=== PATIENT | male | born 1975 | race African-American/Black ===

== ENCOUNTER 2018-07-27 09:58 | Emergency (ER) | payer SELFPAY ==
[2018-07-27 10:57] LABS: #Basophils 0.1 thou/uL (0.0-0.2); #Monocytes 0.5 thou/uL (0.11-0.59); #Neutrophils 3.7 thou/uL (1.40-6.50); %Basophils 1.3 % (0.0-1.0); %Eosinophils 0.1 % (0.0-10.0); %Lymphocytes 19.4 % (21.0-51.0); %Monocytes 8.7 % (0.0-10.0); %Neutrophils 70.5 % (42.0-75.0); Hemoglobin 14.1 g/dL (14.0-18.0); Mean Corpuscular Hemoglobin 28.7 pg (27.0-31.0); Mean Corpuscular Volume 89.6 fL (78.0-98.0); Mean Platelet Volume 7.9 fL (7.4-10.4); Platelet Count 204 thou/uL (130-400); RBC Distribution Width 12.2 % (11.5-14.5); Red Blood Cell (RBC) Count 4.92 mill/uL (4.70-6.10); White Blood Cell (WBC) Count 5.2 thou/uL (4.8-10.8)
[2018-07-27 11:16] LABS: ALT (SGPT) 31 U/L (8-55); AST (SGOT) 27 U/L (5-34); Albumin 4.9 g/dL (3.5-5.0); Alkaline Phosphatase 82 U/L (40-150); Anion Gap 13 mmol/L (10-20); BUN (Urea Nitrogen) 17 mg/dL (8.9-20.6); Bilirubin, Total 0.6 mg/dL (0.2-1.2); Calc. Creatinine Clearance 0 mL/min (70-130); Carbon Dioxide 31 mmol/L (22-29); Chloride 98 mmol/L (98-107); Estimated GFR-MDRD 62; Globulin 2.7 g/dL (2.4-3.5); Glucose 108 mg/dL (70-105); Potassium 3.4 mmol/L (3.5-5.1); Protein, Total 7.6 g/dL (6.0-8.3); Sodium 139 mmol/L (136-145)
--- NOTE | 2018-07-27 11:39 | CT ---
CT Brain WO Con: 07/27/2018 10:40 AM CLINICAL HISTORY: Head injury and pain. COMPARISON: None. FINDINGS: Hemorrhage: There is layering hyperdensity along the cerebellar tentorium, greater to the left, indic ative of acute subdural hematoma. There is also a mild component along the interhemispheric falx. Ventricular system: Normal in size and morphology for the patient's age. Cerebral parenchyma: No intrinsic edema Midline shift: None. Mass: No significant mass effect Calvarium: No displaced fracture. Visualized Paranasal sinuses: Clear. IMPRESSION: Acute subdural hematoma. Recommend neurosurgical consultation. Notification of findings at 1134 hours .
[2018-07-27 12:08] LABS: PTT 34.3 SEC (22.9-36.1); Prothrombin Time 12.9 SEC (12.0-14.7)
== END 2018-07-27 12:30 | disposition short-term general hospital (02) ==
LOC: MADERS 09:58
DX: S06.5X5A Traumatic subdural hemorrhage with loss of consciousness greater than 24 hours with return to pre-existing conscious level, initial encounter (principal); N17.9 Acute kidney failure, unspecified; I10 Essential (primary) hypertension; V80.010A Animal-rider injured by fall from or being thrown from horse in noncollision accident, initial encounter; Z79.899 Other long term (current) drug therapy
CPT/HCPCS: 70450; 80053; 85025; 85610; 85730; 93005; 96365; 99292; J7050